=== PATIENT | male | born 1985 | race African-American/Black ===

== ENCOUNTER 2025-05-14 11:24 | Outpatient (CLI) | payer BC, SELFPAY | END 2025-05-14 11:25 | disposition home or self-care (01) | PROVIDERS: PCP Family Medicine; Visit Provider Family Medicine | DX: R74.8 Abnormal levels of other serum enzymes (principal); K75.9 Inflammatory liver disease, unspecified; Z11.59 Encounter for screening for other viral diseases | CPT/HCPCS: 80053; 80061; 86803 ==

== ENCOUNTER 2025-06-01 06:48 | Outpatient (CLI) | payer BC, SELFPAY ==
--- NOTE | 2025-06-01 08:00 | CRLHL7_ITS ---
For Patients: As a result of the Century Cures Act, medical imaging exams and procedure reports are released immediately into your electronic medical record. You may view this report before your referring provider. If you have questions, please contact your health care provider. Indication: Deviated nasal septum. Technique: Noncontrast CT of the paranasal sinuses with multiplanar reconstruction utilizing bone and soft tissue algorithms. Comparison: None available. Findings: Frontal sinuses: Mild diffuse mucosal thickening on the left with opacified left frontal recess. Clear right frontal sinus and recess. Maxillary sinuses: Lobulated mucosal thickening within the goml-dlanjwj-ttrj-right maxillary alveolar recesses. Patent ostiomeatal complexes and accessory maxillary ostia. Ethmoid sinuses: Moderate mucosal thickening throughout the left greater than right anterior ethmoid air cells. Sphenoid sinuses: Mild mucosal thickening on the left. Opacified sphenoid ostia. Nasal cavity: Mild leftward deviation of the nasal septum with a 3 mm leftward projecting septal spur. Mild right middle and inferior turbinate hypertrophy. Other: Symmetric nasopharynx. Unremarkable orbits and intracranial structures. Impression: 1. Polypoid mucosal thickening within the left frontal recess, left greater than right anterior ethmoid air cells, and maxillary alveolar recesses. 2. Mild leftward deviation of the nasal septum with a 3 mm leftward projecting septal spur. Please note that all CT scans at this facility use dose modulation, iterative reconstruction, and/or weight-based dosing when appropriate to reduce radiation dose to as low as reasonably achievable. Dictated by Rubén Higgins MD @ 06/01/2025 9:29:37 AM (Electronically Signed)
== END 2025-06-01 06:49 | disposition home or self-care (01) ==
LOC: CT 06:49
PROVIDERS: PCP Family Medicine; Visit Provider Family Medicine
DX: J34.2 Deviated nasal septum (principal); R74.8 Abnormal levels of other serum enzymes
CPT/HCPCS: 70486

== ENCOUNTER 2025-09-14 17:00 | Outpatient (CLI) | payer BC, SELFPAY | END 2025-09-14 17:01 | disposition home or self-care (01) | LOC: LKVREF 17:03 | PROVIDERS: PCP Family Medicine; Visit Provider Family Medicine | DX: M25.50 Pain in unspecified joint (principal) | CPT/HCPCS: 84550 ==

== ENCOUNTER 2025-09-25 09:59 | Day surgery (SDC) | payer BC, SELFPAY ==
[2025-09-25] VITALS (13 sets, daily range): BP systolic 90–119; BP diastolic 55–86; PULSE 73–98; RESP 12–16; TEMP 36.3–37.2; O2SAT 94–99; BMI 25.9
[2025-09-25] MEDS: LACTATED RINGERS 1000 ML 1,000 ML 100 ML IV (10:00)
[2025-09-25] MEDS: SODIUM CHLORIDE 0.9 % (FLUSH) 10 ML SYRINGE IVF (10:37)
[2025-09-25] MEDS: OXYMETAZOLINE 0.05% NASAL SPRAY 2 SPRAY NOSTRIL-B (10:38)
[2025-09-25] MEDS: AYR SALINE NASAL GEL 1 APPLIC NOSTRIL-B (12:08)
[2025-09-25] MEDS: BUPIVACAINE 0.5%/EPINEPHRINE 0.9 MG (30.9 ML) INJECTION (12:15)
[2025-09-25] MEDS: MUPIROCIN 1 GM PACKET 1 APPLIC TOPICAL (12:16)
--- NOTE | 2025-09-25 12:22 | P.ENTPROC_ITS ---
Procedure Note Date of procedure: 09/25/25 Procedure: Preop diagnosis chronic left ethmoid sinusitis, severe left septal deviation, nasal obstruction, right inferior turbinate compensatory hypertrophy Postop same Procedure nasal septoplasty, submucous partial resection right inferior tu rbinate, endoscopic left ethmoidectomy with image guidance and 0 degree endoscopy Under general trach anesthesia patient was prepped draped usual fashion nose decongested and injected. A right hemitransfixion incision was made left anterior and posterior tunnels were developed. A vertical incision was made through the cartilage and a right posterior tunnel created. I freed the inferior and right anterior septum as well which allowed it to unfold and rreturned to midline. Posteriorly a vertical incision was made through the cartilage anterior to the bone and the posterior left area 4 impaction was resected a piece of this was trimmed and returned to intraseptal space. The hemitransfixion was closed with 2 4-0 chromic sutures A stab incision was made in the anterior of the right inferior turbinate a tunnel created with a Farnaz dissector. The yogi bone was outfractured and a conservative anterior submucous resection performed. The Coblation was used for hemostasis and to cauterize intramurally along the inferior 10%. For the remainder procedure 0 degree endoscopy and image guidance were utilized. The left middle turbinate was medialized and the ethmoid bulla taken down and dissection carried out in an anterior to posterior direction removing a large amount of polypoid material. Visualization was excellent. Silastic stents were secured on either side the septum with 3-0 nylon. Merocel packing coated in Bactroban was placed in the middle meatus on the left and nasal cavity on the right. The patient procedure well was taken recovery in satisfactory condition. Blood loss was approximately 10 mL. Surgeon: Henri King MD
--- NOTE | 2025-09-25 12:35 | P.ANES_ITS ---
Anesthesia Charges Start Date/Time Anesthesia Start Date: 09/25/25 Anesthesia Start Time: 01:14 Stop Date/Time Anesthesia Stop Date: 09/25/25 Anesthesia Stop Time: 12:34 Coding CPT Codes CPT Codes: ANESTH NOSE/SINUS SURGERY - 82617 ([id number]) P1 - NORMAL HEALTHY PATIENT, QK - TOLL BRIDGE ATTENDANT 2-4 CNCRNT ANES PROC, QX - INSPECTOR FIREARMS SVKarina W/ MED DIRECTION
--- NOTE | 2025-09-25 12:35 | W.ANESCHARGE ---
Anesthesia Charges Start Date/Time Anesthesia Start Date: 09/25/25 Anesthesia Start Time: 01:14 Stop Date/Time Anesthesia Stop Date: 09/25/25 Anesthesia Stop Time: 12:34 Coding CPT Codes CPT Codes: ANESTH NOSE/SINUS SURGERY - 63973 ([id number]) P1 - NORMAL HEALTHY PATIENT, QK - IT ARCHITECT 2-4 CNCRNT ANES PROC, QX - CAR HOPPER SVKarina W/ MED DIRECTION
--- NOTE | 2025-09-25 12:58 | P.ANES_ITS ---
Anesthesia Charges Start Date/Time Anesthesia Start Date: 09/25/25 Anesthesia Start Time: 11:14 Stop Date/Time Anesthesia Stop Date: 09/25/25 Anesthesia Stop Time: 12:34 Coding CPT Codes CPT Codes: ANESTH NOSE/SINUS SURGERY - 81015 ([id number]) P1 - NORMAL HEALTHY PATIENT, QK - BARBER APPRENTICE 2-4 CNCRNT ANES PROC, QX - OUTSOLE CEMENTER SVKarina W/ MED DIRECTION
--- NOTE | 2025-09-25 12:58 | W.ANESCHARGE ---
Anesthesia Charges Start Date/Time Anesthesia Start Date: 09/25/25 Anesthesia Start Time: 11:14 Stop Date/Time Anesthesia Stop Date: 09/25/25 Anesthesia Stop Time: 12:34 Coding CPT Codes CPT Codes: ANESTH NOSE/SINUS SURGERY - 85952 ([id number]) P1 - NORMAL HEALTHY PATIENT, QK - CONFIDENTIAL SECRETARY 2-4 CNCRNT ANES PROC, QX - SALES SERVICE EXECUTIVE SVKarina W/ MED DIRECTION
--- NOTE | 2025-09-25 13:03 | P.ANES_ITS ---
Anesthesia Charges Start Date/Time Anesthesia Start Date: 09/25/25 Anesthesia Start Time: 11:14 Stop Date/Time Anesthesia Stop Date: 09/25/25 Anesthesia Stop Time: 12:34 Coding CPT Codes CPT Codes: ANESTH NOSE/SINUS SURGERY - 91708 ([id number]) P1 - NORMAL HEALTHY PATIENT, QK - BODY SHOP ESTIMATOR 2-4 CNCRNT ANES PROC, QX - CARPENTER HELPER SVKarina W/ MED DIRECTION
--- NOTE | 2025-09-25 13:03 | W.ANESCHARGE ---
Anesthesia Charges Start Date/Time Anesthesia Start Date: 09/25/25 Anesthesia Start Time: 11:14 Stop Date/Time Anesthesia Stop Date: 09/25/25 Anesthesia Stop Time: 12:34 Coding CPT Codes CPT Codes: ANESTH NOSE/SINUS SURGERY - 04568 ([id number]) P1 - NORMAL HEALTHY PATIENT, QK - SKILL TRAINING PROGRAM COORDINATOR 2-4 CNCRNT ANES PROC, QX - QUALITY ASSURANCE ASSESSOR SVKarina W/ MED DIRECTION
[2025-09-25] MEDS: IBUPROFEN 200 MG TABLET PO (13:31)
== END 2025-09-25 14:23 | disposition home or self-care (01) ==
LOC: OR 10:00
PROVIDERS: PCP Family Medicine; Visit Provider Otolaryngology
PROC: (CPT 31231; principal; 2025-09-25 11:15)
DX: J32.2 Chronic ethmoidal sinusitis (principal); J34.3 Hypertrophy of nasal turbinates; J34.2 Deviated nasal septum; J34.89 Other specified disorders of nose and nasal sinuses; J33.8 Other polyp of sinus
CPT/HCPCS: 30520; 30140; 31255; 00160; A9270; J0330; J1100; J2405; J2704; J3010; J7120